=== PATIENT | male | born 1995 | race Caucasian/White ===

== ENCOUNTER 2024-05-14 15:32 | Emergency (ER) | payer BC ==
[~2024-05-14] VITALS: Ht 91.4 cm; Wt 147.0 kg
[2024-05-14 15:49] VITALS: BP 148/97
[2024-05-14] MEDS ORDERED: SODIUM CHLORIDE 0.9% 1,000 ML IV STA (15:51)
[2024-05-14] MEDS ORDERED: Pantoprazole Sodium 40 MG VIAL (Protonix) IV STA (15:51)
[2024-05-14] MEDS ORDERED: ONDANSETRON HCl 4 MG/2 ML SDV IV STA (15:51)
[2024-05-14] MEDS ORDERED: DIATRIZOATE MEGLUMINE & SODIUM 30 ML/BTL PO ONE (15:55)
[2024-05-14 16:15] LABS: BASO% 0.8 % (0-3); EOS% 3.3 % (0-8); HEMATOCRIT 38.3 % (39.0-50.0); HEMOGLOBIN 13.3 g/dl (14.0-18.0); IMMATURE GRANULOCYTES 0.1 % (0.0-5.0); LYMPH% 13.7 % (15-41); MEAN CELL VOLUME 84.7 fL CALC (80.0-100.0); MEAN CORPUSCULAR HGB 29.4 pG CALC (26.0-32.0); MEAN CORPUSCULAR HGB CONC 34.7 g/dL CAL (32.0-36.0); MONO% 5.6 % (2-13); NEUT% 76.5 % (42-76); RED BLOOD COUNT 4.52 mill/uL (4.70-6.10); RED CELL DISTRI WIDTH 11.8 % (11.5-15.5)
[2024-05-14 16:16] VITALS: BP 142/89
[2024-05-14 16:28] LABS: AMYLASE 47 u/l (30-110); LIPASE 32 u/l (23-300)
[2024-05-14 16:29] LABS: ALBUMIN 4.8 g/dL (3.2-5.0); BILIRUBIN, TOTAL 1.3 mg/dL (0.2-1.3); CREATININE 0.7 mg/dL (0.7-1.3); POTASSIUM 3.7 mmol/l (3.5-5.1); TOTAL PROTEIN 7.8 g/dL (6.3-8.2)
[2024-05-14 16:45] LABS: URINE BILIRUBIN - DIPSTICK Negative (NEGATIVE); URINE BLOOD DIPSTICK Negative (NEGATIVE); URINE COLOR Yellow; URINE GLUCOSE - DIPSTICK Negative (NEGATIVE); URINE KETONE Trace mg/dL (NEGATIVE); URINE LEUK ESTERASE Negative (NEGATIVE); URINE NITRITE - DIPSTICK Negative (Negative); URINE PH 6.5 (4.5-8.0); URINE PROTEIN - DIPSTICK Trace mg/dL (NEG-TRACE); URINE UROBILINOGEN - DIPSTICK 0.2 E.U./dL (0.2)
[2024-05-14] MEDS ORDERED: PROTONIX40 M2 PO (18:48)
[2024-05-14] MEDS ORDERED: ZOFRAN4 MG/TAB PO (18:48)
[2024-05-14 19:25] VITALS: BP 142/89
== END 2024-05-14 19:25 | disposition home or self-care (01) | DRG 392 ==
LOC: ED 15:32
PROVIDERS: Family Medicine; Nurse Practitioner
DX: K52.9 Noninfective gastroenteritis and colitis, unspecified (principal); I10 Essential (primary) hypertension; Z20.822 Contact with and (suspected) exposure to COVID-19
CPT/HCPCS: J2405; J2470; Q9967